=== PATIENT | female | born 1940 | race Caucasian/White ===

== ENCOUNTER 2017-02-06 21:51 | Emergency (ER) | payer OTHER ==
[~2017-02-06 21:51] MED LIST: ACETAMINOPHEN PO; ALLEGRA PO; ALLEGRA180 MG PO; ALPRAZOLAM PO; ANUSOL-HC CREAM30 G1 EXT; ANUSOL-HC SUPP25 M1 PR; CLEOCIN HCL300 M1 PO; COMBIVENT INH14.7 GM INH; COZAAR PO; COZAAR100 MG PO; DUREZOL OS; FAMOTIDINE PO; GLEEVEC; GLEEVEC PO; HYZAAR 50-12.51 TAB PO; ILEVRO OS; LORTAB 7.5-5001 TAB PO; LOVENOX SUBQ; PHENERGAN PR; PRILOSEC PO; PRILOSEC20 MG PO; ROCEPHIN IV; SYNTHROID PO; VICODIN 5/500 T1 TAB PO; XANAX0.5 MG PO; [UNRECOGNIZED DRUG - OTHER] MT
[2017-02-06] MEDS ORDERED: LINZESS72 MCG (22:17)
[2017-02-06] MEDS ORDERED: BENTYL20 MG (22:18)
== END 2017-02-07 02:17 | disposition home or self-care (01) ==
LOC: SED 21:51
DX: K59.00 Constipation, unspecified (principal); F41.9 Anxiety disorder, unspecified; I10 Essential (primary) hypertension; E03.9 Hypothyroidism, unspecified; Z90.49 Acquired absence of other specified parts of digestive tract; Z88.2 Allergy status to sulfonamides; Z88.5 Allergy status to narcotic agent; Z88.8 Allergy status to other drugs, medicaments and biological substances; Z79.899 Other long term (current) drug therapy
CPT/HCPCS: 99283